=== PATIENT | male | born 1965 | race Caucasian/White ===

== ENCOUNTER 2021-07-14 10:28 | Observation (INO) ==
[2021-07-14 12:07] LABS: Basophils # 0.1 K/mcL (0.0-0.2); Basophils % 0.7 %; Eosinophils # 0.3 K/mcL (0.0-0.6); Eosinophils % 3.8 %; Hematocrit 30.4 % (37.5-50.1); Hemoglobin 10.1 g/dL (12.9-16.9); Immature Granulocytes % 0.3 % (0-4); Lymphocytes # 1.5 K/mcL (0.6-4.6); Lymphocytes % 17.6 %; Mean Corpuscular HGB Conc 33.2 g/dL (31.6-35.5); Mean Corpuscular Hemoglobin 29.5 pg (28.0-33.3); Mean Corpuscular Volume 88.9 fL (83.0-100.0); Mean Platelet Volume 10.3 fL (9.4-12.4); Monocytes # 0.5 K/mcL (0.0-1.3); Monocytes % 6.1 %; Neutrophils # 6.1 K/mcL (1.6-8.9); Platelet Count 258 K/mcL (140-400); Red Blood Count 3.42 M/mcL (4.19-5.50); Red Cell Distribution Width 12.8 % (11.5-14.5); Segmented Neutrophils % 71.5 %; White Blood Count 8.6 K/mcL (4.3-11.1)
[2021-07-14 12:13] LABS: BUN/Creatinine Ratio 15 (6-26); Blood Urea Nitrogen 29 mg/dL (6-20); Calcium 8.2 mg/dL (8.6-10.3); Carbon Dioxide 25 mEq/L (23-29); Chloride 108 mEq/L (98-107); Glucose 270 mg/dL (70-105); Osmolality,Calculated 299 (280-300); Potassium 4.6 mEq/L (3.5-5.1); Sodium 137 mEq/L (136-145); Troponin I < 0.03 ng/mL (< 0.04); eGFR For African Americans 45 (> 60); eGFR For Non-African Americans 37 (> 60)
[2021-07-14] MEDS ORDERED: Furosemide 40 MG/4 ML VIAL IVP ONE (12:20)
[2021-07-14] MEDS ORDERED: *HR* Labetalol 20 MG/4 ML SYRINGE IVP ONE ×2 (12:20→13:36)
[2021-07-14 13:47] LABS: Activated Partial Thrombo Time 29.6 Seconds (26.0-36.0)
[2021-07-14 14:13] LABS: Alanine Aminotransferase 18 Units/L (7-52); Albumin 2.5 g/dL (3.5-5.7); Albumin/Globulin Ratio 1.1 (1.1-2.2); Alkaline Phosphatase 97 Units/L (34-104); Aspartate Amino Transferase 22 Units/L (13-39); Bilirubin,Direct 0.1 mg/dL (0.0-0.2); Bilirubin,Indirect 0.3 mg/dL (0.0-1.0); Bilirubin,Total 0.4 mg/dL (0.3-1.0); Globulin 2.3 g/dL (2.4-3.5); Total Protein 4.8 g/dL (6.4-8.9)
[2021-07-14] MEDS ORDERED: niCARdipine 20 MG/200 ML MLS IVC SCH ×2 (16:30→16:45)
[2021-07-14] MEDS ORDERED: NIFEdipine XL (24 HR) 30 MG TAB.ER.24 PO SCH (16:30)
[2021-07-14] MEDS ORDERED: Dextrose Gel 15 GM/37.5 ML TUBE PO PRN ×2 (16:31)
[2021-07-14] MEDS ORDERED: D5% in Water 1,000 ML IVC PRN (16:31)
[2021-07-14] MEDS ORDERED: *HR* Dextrose 50 % in Water (Vial) 50 ML VIAL IVP PRN (16:31)
[2021-07-14] MEDS ORDERED: Acetaminophen 325 MG TABLET PO PRN (16:32)
[2021-07-14] MEDS ORDERED: Ondansetron 4 MG/2 ML VIAL IVP PRN (16:32)
[2021-07-14] MEDS ORDERED: hydrALAZINE 10 MG TABLET PO SCH (16:50)
[2021-07-14] MEDS ORDERED: Perflutren Lipid Microsphere 1.3 ML in 0.9 % Sodium Chloride 8.7 ML IVP PRN (16:58)
[2021-07-14] MEDS ORDERED: Insulin DETEMIR 100 UNIT/ML X5UNITS SUBQ SCH (21:00)
[2021-07-14] MEDS: *HR* Heparin 5,000 UNIT/ML VIAL SQ SCH (23:35)
[2021-07-14] MEDS: Insulin LISPRO 300 UNITS/3 ML VIAL SUBQ SCH (23:35)
[2021-07-15 02:35] LABS: Hematocrit 26.7 % (37.5-50.1); Hemoglobin 9.1 g/dL (12.9-16.9); Mean Corpuscular HGB Conc 34.1 g/dL (31.6-35.5); Mean Corpuscular Hemoglobin 29.7 pg (28.0-33.3); Mean Corpuscular Volume 87.3 fL (83.0-100.0); Mean Platelet Volume 10.5 fL (9.4-12.4); Platelet Count 241 K/mcL (140-400); Red Blood Count 3.06 M/mcL (4.19-5.50); Red Cell Distribution Width 12.9 % (11.5-14.5); White Blood Count 7.3 K/mcL (4.3-11.1)
[2021-07-15 02:46] LABS: Potassium 4.4 mEq/L (3.5-5.1)
[2021-07-15] MEDS: *HR* Heparin 5,000 UNIT/ML VIAL SQ SCH ×3 (05:43→22:41)
[2021-07-15] MEDS: Insulin LISPRO 300 UNITS/3 ML VIAL SUBQ SCH ×5 (09:42→22:38)
[2021-07-15] MEDS: NIFEdipine XL (24 HR) 30 MG TAB.ER.24 PO SCH (16:03)
[2021-07-16 02:36] LABS: Basophils % 0.3 %; Eosinophils # 0.2 K/mcL (0.0-0.6); Eosinophils % 2.6 %; Hematocrit 25.3 % (37.5-50.1); Hemoglobin 8.5 g/dL (12.9-16.9); Immature Granulocytes % 0.3 % (0-4); Lymphocytes # 1.4 K/mcL (0.6-4.6); Lymphocytes % 20.8 %; Mean Corpuscular HGB Conc 33.6 g/dL (31.6-35.5); Mean Corpuscular Hemoglobin 29.9 pg (28.0-33.3); Mean Corpuscular Volume 89.1 fL (83.0-100.0); Mean Platelet Volume 10.5 fL (9.4-12.4); Monocytes # 0.5 K/mcL (0.0-1.3); Monocytes % 6.8 %; Neutrophils # 4.6 K/mcL (1.6-8.9); Platelet Count 231 K/mcL (140-400); Red Blood Count 2.84 M/mcL (4.19-5.50); Red Cell Distribution Width 12.8 % (11.5-14.5); Segmented Neutrophils % 69.2 %; White Blood Count 6.6 K/mcL (4.3-11.1)
[2021-07-16 02:57] LABS: Calcium 7.9 mg/dL (8.6-10.3); Potassium 4.8 mEq/L (3.5-5.1)
[2021-07-16 02:58] LABS: Uric Acid 7.4 mg/dL (2.3-7.6)
[2021-07-16] MEDS: *HR* Heparin 5,000 UNIT/ML VIAL SQ SCH ×3 (06:30→23:07)
[2021-07-16] MEDS: Insulin LISPRO 300 UNITS/3 ML VIAL SUBQ SCH ×4 (07:33→21:36)
[2021-07-16] MEDS: NIFEdipine XL (24 HR) 30 MG TAB.ER.24 PO SCH (09:07)
[2021-07-16] MEDS: Sucralfate 1 GM TABLET PO SCH ×3 (13:05→23:07)
[2021-07-16] MEDS: hydrALAZINE 25 MG TABLET PO SCH ×2 (13:05→19:39)
[2021-07-16] MEDS ORDERED: Mirtazapine 15 MG TABLET PO SCH (21:00)
[2021-07-17 02:18] LABS: Basophils % 0.5 %; Eosinophils # 0.2 K/mcL (0.0-0.6); Eosinophils % 2.5 %; Hematocrit 24.1 % (37.5-50.1); Immature Granulocytes % 0.2 % (0-4); Lymphocytes # 1.4 K/mcL (0.6-4.6); Lymphocytes % 22.5 %; Mean Corpuscular HGB Conc 33.2 g/dL (31.6-35.5); Mean Corpuscular Hemoglobin 30.1 pg (28.0-33.3); Mean Corpuscular Volume 90.6 fL (83.0-100.0); Mean Platelet Volume 10.5 fL (9.4-12.4); Monocytes # 0.5 K/mcL (0.0-1.3); Monocytes % 7.1 %; Neutrophils # 4.3 K/mcL (1.6-8.9); Platelet Count 217 K/mcL (140-400); Red Blood Count 2.66 M/mcL (4.19-5.50); Red Cell Distribution Width 12.6 % (11.5-14.5); Segmented Neutrophils % 67.2 %; White Blood Count 6.4 K/mcL (4.3-11.1)
[2021-07-17 02:41] LABS: Calcium 7.5 mg/dL (8.6-10.3); Potassium 4.3 mEq/L (3.5-5.1)
[2021-07-17] MEDS: hydrALAZINE 25 MG TABLET PO SCH (05:59)
[2021-07-17] MEDS: *HR* Heparin 5,000 UNIT/ML VIAL SQ SCH (05:59)
[2021-07-17] MEDS: Insulin LISPRO 300 UNITS/3 ML VIAL SUBQ SCH ×2 (07:21→12:31)
[2021-07-17] MEDS: NIFEdipine XL (24 HR) 30 MG TAB.ER.24 PO SCH (08:20)
[2021-07-17] MEDS: Sucralfate 1 GM TABLET PO SCH ×2 (08:20→12:31)
[2021-07-17] MEDS ORDERED: Folic Acid 1 MG TABLET PO SCH (09:00)
[2021-07-17 11:46] VITALS: BP 113/68; PULSE 93; TEMP 98.4; O2SAT 90
== END 2021-07-17 14:20 | disposition left against medical advice (07) ==
LOC: 3ANU 10:28 → EMEROOARM 10:28 → SUATTDRO 21:49 → 3ANU 23:00
PROVIDERS: ADMIT Student in an Organized Health Care Education/Training Program; ATTEND Internal Medicine

== ENCOUNTER 2021-08-29 07:07 | Inpatient (IN) ==
[2021-08-29] MEDS ORDERED: *HR* Dextrose 50 % in Water (Syg) 50 ML SYRINGE ONE (07:17)
[2021-08-29] MEDS ORDERED: 0.9 % Sodium Chloride 1,000 ML IVC ONE ×2 (07:19→08:12)
[2021-08-29 07:36] LABS: Eosinophils # 0.1 K/mcL (0.0-0.6); Eosinophils % 0.8 %; Hematocrit 19.2 % (37.5-50.1); Hemoglobin 6.5 g/dL (12.9-16.9); Immature Granulocytes % 0.3 % (0-4); Lymphocytes # 0.6 K/mcL (0.6-4.6); Lymphocytes % 6.1 %; Mean Corpuscular HGB Conc 33.9 g/dL (31.6-35.5); Mean Corpuscular Hemoglobin 28.5 pg (28.0-33.3); Mean Corpuscular Volume 84.2 fL (83.0-100.0); Mean Platelet Volume 9.5 fL (9.4-12.4); Monocytes # 0.4 K/mcL (0.0-1.3); Monocytes % 3.9 %; Neutrophils # 9.1 K/mcL (1.6-8.9); Platelet Count 426 K/mcL (140-400); Red Blood Count 2.28 M/mcL (4.19-5.50); Segmented Neutrophils % 88.9 %; White Blood Count 10.2 K/mcL (4.3-11.1)
[2021-08-29] MEDS ORDERED: *HR* Dextrose 50 % in Water (Syg) 50 ML SYRINGE IVP ONE (07:37)
[2021-08-29 08:09] LABS: Alanine Aminotransferase 13 Units/L (7-52); Albumin 1.8 g/dL (3.5-5.7); Albumin/Globulin Ratio 0.6 (1.1-2.2); Alkaline Phosphatase 178 Units/L (34-104); Aspartate Amino Transferase 15 Units/L (13-39); BUN/Creatinine Ratio 13 (6-26); Bilirubin,Total 0.2 mg/dL (0.3-1.0); Blood Urea Nitrogen 45 mg/dL (6-20); Calcium 8.4 mg/dL (8.6-10.3); Carbon Dioxide 27 mEq/L (23-29); Chloride 95 mEq/L (98-107); Globulin 3.1 g/dL (2.4-3.5); Glucose 68 mg/dL (70-105); Lipase 7 Units/L (11-82); Osmolality,Calculated 280 (280-300); Sodium 130 mEq/L (136-145); Total Protein 4.9 g/dL (6.4-8.9); Troponin I 0.06 ng/mL (< 0.04); eGFR For African Americans 22 (> 60); eGFR For Non-African Americans 18 (> 60)
[2021-08-29 08:13] LABS: Ethanol < 10 mg/dL (Less than 10)
[2021-08-29] MEDS ORDERED: Naloxone 0.4 MG/ML INJ IVP PRN (08:19)
[2021-08-29] MEDS ORDERED: Melatonin 3 MG TABLET PO PRN (08:19)
[2021-08-29] MEDS ORDERED: Ondansetron ODT 4 MG TAB.RAPDIS SL PRN (08:19)
[2021-08-29] MEDS ORDERED: Mag Hydrox/Al Hydrox/Simeth 30 ML UDC PO PRN (08:19)
[2021-08-29] MEDS ORDERED: Dextrose Gel 15 GM/37.5 ML TUBE PO PRN ×2 (08:22)
[2021-08-29] MEDS ORDERED: 0.9 % Sodium Chloride 250 ML ONE (10:42)
[2021-08-29] MEDS: 0.9 % Sodium Chloride 1,000 ML IVC SCH (11:00)
[2021-08-29 11:30] LABS: Influenza A PCR Negative (Negative); Influenza B PCR Negative (Negative); Resp. Syncytial Virus PCR Negative (Negative)
[2021-08-29 11:43] LABS: SARS-CoV-2 by PCR (In House) Negative (Negative)
[2021-08-29] MEDS: Insulin LISPRO 300 UNITS/3 ML VIAL SUBQ SCH ×2 (12:23→15:59)
[2021-08-29] MEDS ORDERED: Potassium Chloride 40 MEQ, Lidocaine 1% 2 ML in 0.9 % Sodium Chloride 500 ML IVPB ONE (13:25)
[2021-08-29] MEDS: *HR* Dextrose 50 % in Water (Syg) 50 ML SYRINGE IVP PRN ×2 (15:48→21:34)
[2021-08-29 16:42] LABS: Hematocrit 21.2 % (37.5-50.1); Hemoglobin 7.3 g/dL (12.9-16.9)
[2021-08-29] MEDS: Pantoprazole 40 MG VIAL IVP SCH (18:03)
[2021-08-29 20:46] LABS: Hematocrit 21.9 % (37.5-50.1); Hemoglobin 7.5 g/dL (12.9-16.9)
[2021-08-29] MEDS ORDERED: Insulin LISPRO 300 UNITS/3 ML VIAL SUBQ SCH (21:00)
[2021-08-29] MEDS: D5% in Water 1,000 ML IVC PRN (21:33)
[2021-08-30 01:54] LABS: Hematocrit 21.7 % (37.5-50.1); Hemoglobin 7.3 g/dL (12.9-16.9); Mean Corpuscular HGB Conc 33.6 g/dL (31.6-35.5); Mean Corpuscular Hemoglobin 28.7 pg (28.0-33.3); Mean Corpuscular Volume 85.4 fL (83.0-100.0); Mean Platelet Volume 9.7 fL (9.4-12.4); Platelet Count 451 K/mcL (140-400); Red Blood Count 2.54 M/mcL (4.19-5.50); Red Cell Distribution Width 13.1 % (11.5-14.5); White Blood Count 9.9 K/mcL (4.3-11.1)
[2021-08-30 02:11] LABS: Calcium 7.5 mg/dL (8.6-10.3); Potassium 3.2 mEq/L (3.5-5.1)
[2021-08-30] MEDS: Pantoprazole 40 MG VIAL IVP SCH (05:11)
[2021-08-30 06:35] LABS: Bacteria,Urine Moderate per hpf (None-Few); Bilirubin,Urine Negative (Negative); Blood,Urine Small (Negative); Clarity,Urine Turbid (Clear); Color,Urine Light-Yellow (Yellow); Glucose,Urine (UA) 300 mg/dL (Normal); Ketones,Urine Negative (Negative); Leukocyte Esterase,Urine Large (Negative); Nitrite,Urine Negative (Negative); Protein,Urine 100 mg/dL (Neg-Trace); RBC,Urine 0-3 per hpf (0-3); Urobilinogen,Urine Normal (Normal); WBC,Urine TNTC per hpf (0-3)
[2021-08-30] MEDS: D5% in Water 1,000 ML IVC PRN (07:23)
[2021-08-30] MEDS: Insulin LISPRO 300 UNITS/3 ML VIAL SUBQ SCH ×2 (08:40→11:15)
[2021-08-30] MEDS ORDERED: NIFEdipine XL (24 HR) 30 MG TAB.ER.24 PO SCH (09:00)
[2021-08-30] MEDS: Multivit/Ca/Min/Fe/FA 1 TAB TABLET PO SCH (09:02)
[2021-08-30] MEDS: NIFEdipine XL (24 HR) 30 MG TAB.ER.24 PO SCH (09:02)
[2021-08-30] MEDS: Calcium Gluconate 1gm/50mL 1 GM/50 ML BAG IVPB SCH ×2 (09:03→09:49)
[2021-08-30] MEDS: cefTRIAXone 1,000 MG in 0.9 % Sodium Chloride Mini Bag 100 ML IVPB SCH (09:03)
[2021-08-30] MEDS ORDERED: Acetaminophen 325 MG TABLET PO PRN (13:50)
[2021-08-30] MEDS ORDERED: *HR* OxyCODONE Immed Rel 5 MG TABLET PO PRN (13:50)
[2021-08-30 14:39] LABS: Estimated Average Glucose 154 mg/dl
[2021-08-30] MEDS: Sucralfate 1 GM TABLET PO SCH ×2 (16:55→20:44)
[2021-08-30] MEDS ORDERED: Calcium Acetate 667 MG CAPSULE PO SCH (17:00)
[2021-08-31] MEDS: 0.9 % Sodium Chloride 1,000 ML IVC SCH ×3 (01:42→15:14)
[2021-08-31 07:31] LABS: Hematocrit 25.3 % (37.5-50.1); Hemoglobin 8.4 g/dL (12.9-16.9); Mean Corpuscular HGB Conc 33.2 g/dL (31.6-35.5); Mean Corpuscular Hemoglobin 28.4 pg (28.0-33.3); Mean Corpuscular Volume 85.5 fL (83.0-100.0); Mean Platelet Volume 9.4 fL (9.4-12.4); Platelet Count 434 K/mcL (140-400); Red Blood Count 2.96 M/mcL (4.19-5.50); Red Cell Distribution Width 13.2 % (11.5-14.5)
[2021-08-31 07:59] LABS: Calcium 7.7 mg/dL (8.6-10.3); Magnesium 2.2 mg/dL (1.6-2.6); Potassium 3.3 mEq/L (3.5-5.1)
[2021-08-31] MEDS: cefTRIAXone 1,000 MG in 0.9 % Sodium Chloride Mini Bag 100 ML IVPB SCH (08:12)
[2021-08-31] MEDS: Multivit/Ca/Min/Fe/FA 1 TAB TABLET PO SCH (08:12)
[2021-08-31] MEDS: Sucralfate 1 GM TABLET PO SCH ×4 (08:12→21:29)
[2021-08-31] MEDS: NIFEdipine XL (24 HR) 30 MG TAB.ER.24 PO SCH (08:12)
[2021-08-31 08:17] LABS: Folate 12.1 ng/mL (3.0-16.0)
[2021-08-31] MEDS: Finasteride 5 MG TABLET PO SCH (08:17)
[2021-08-31] MEDS ORDERED: Calcium Gluconate 1gm/50mL 1 GM/50 ML BAG IVPB ONE (08:36)
[2021-08-31] MEDS ORDERED: Iron Sucrose Complex 400 MG in 0.9 % Sodium Chloride 250 ML IVPB ONE (08:36)
[2021-08-31 09:43] LABS: Thyroid Stimulating Hormone 2.873 mcIU/mL (0.340-5.600)
[2021-09-01 00:41] LABS: Hematocrit 25.9 % (37.5-50.1); Hemoglobin 8.7 g/dL (12.9-16.9); Mean Corpuscular HGB Conc 33.6 g/dL (31.6-35.5); Mean Corpuscular Volume 86.3 fL (83.0-100.0); Mean Platelet Volume 9.3 fL (9.4-12.4); Platelet Count 437 K/mcL (140-400); Red Cell Distribution Width 13.2 % (11.5-14.5); White Blood Count 10.9 K/mcL (4.3-11.1)
[2021-09-01 01:00] LABS: Calcium 7.5 mg/dL (8.6-10.3); Magnesium 2.1 mg/dL (1.6-2.6); Phosphorous 3.6 mg/dL (2.7-4.5); Potassium 3.6 mEq/L (3.5-5.1)
[2021-09-01] MEDS: NIFEdipine XL (24 HR) 30 MG TAB.ER.24 PO SCH (08:35)
[2021-09-01] MEDS: Sucralfate 1 GM TABLET PO SCH ×4 (08:36→19:49)
[2021-09-01] MEDS: Multivit/Ca/Min/Fe/FA 1 TAB TABLET PO SCH (08:36)
[2021-09-01] MEDS: cefTRIAXone 1,000 MG in 0.9 % Sodium Chloride Mini Bag 100 ML IVPB SCH (08:36)
[2021-09-01] MEDS: Finasteride 5 MG TABLET PO SCH (08:38)
[2021-09-01] MEDS ORDERED: 0.9 % Sodium Chloride 1,000 ML IVC SCH (12:15)
[2021-09-01] MEDS: Lactobacillus 1 EACH CAP.SPRINK PO SCH (19:49)
[2021-09-01] MEDS ORDERED: Cefepime HCl 1,000 MG in 0.9 % Sodium Chloride Mini Bag 100 ML IVPB SCH (21:00)
[2021-09-02 03:23] LABS: Hematocrit 23.3 % (37.5-50.1); Hemoglobin 7.7 g/dL (12.9-16.9); Mean Corpuscular Hemoglobin 28.5 pg (28.0-33.3); Mean Corpuscular Volume 86.3 fL (83.0-100.0); Mean Platelet Volume 9.4 fL (9.4-12.4); Platelet Count 471 K/mcL (140-400); Red Cell Distribution Width 13.6 % (11.5-14.5)
[2021-09-02 04:07] LABS: Calcium 7.1 mg/dL (8.6-10.3); Magnesium 2.1 mg/dL (1.6-2.6); Potassium 3.2 mEq/L (3.5-5.1)
[2021-09-02] MEDS: NIFEdipine XL (24 HR) 30 MG TAB.ER.24 PO SCH (07:49)
[2021-09-02] MEDS: Lactobacillus 1 EACH CAP.SPRINK PO SCH (07:49)
[2021-09-02] MEDS: Sucralfate 1 GM TABLET PO SCH (07:49)
[2021-09-02] MEDS: Finasteride 5 MG TABLET PO SCH (07:49)
[2021-09-02] MEDS: Multivit/Ca/Min/Fe/FA 1 TAB TABLET PO SCH (07:49)
[2021-09-02] MEDS ORDERED: levoFLOXacin 750 MG TABLET PO SCH (09:00)
[2021-09-02 10:35] VITALS: BP 171/85; PULSE 78; TEMP 99.1; O2SAT 98
[2021-09-02] MEDS ORDERED: Sucralfate 1 GM TABLET PO SCH (11:30)
== END 2021-09-02 15:22 | disposition home health service (06) | DRG 682 ==
LOC: SUATTDRO → EMEROOARM 07:07 → 2ANU 07:07 → OBSVTOIN 12:48 → SUATTDRO 12:48 → 2ANU 14:02
PROVIDERS: ADMIT Family Medicine; ATTEND Internal Medicine

== ENCOUNTER 2021-11-26 14:36 | Inpatient (IN) ==
[2021-11-26] MEDS ORDERED: 0.9 % Sodium Chloride 500 ML IVC ONE (14:54)
[2021-11-26 15:23] LABS: Hematocrit 21.6 % (37.5-50.1); Hemoglobin 6.7 g/dL (12.9-16.9); Mean Corpuscular Hemoglobin 27.7 pg (28.0-33.3); Mean Corpuscular Volume 89.3 fL (83.0-100.0); Mean Platelet Volume 9.3 fL (9.4-12.4); Platelet Count 396 K/mcL (140-400); Red Blood Count 2.42 M/mcL (4.19-5.50); Red Cell Distribution Width 14.4 % (11.5-14.5); White Blood Count 21.9 K/mcL (4.3-11.1)
[2021-11-26 15:50] LABS: Alanine Aminotransferase 14 Units/L (7-52); Albumin < 1.5 g/dL (3.5-5.7); Alkaline Phosphatase 427 Units/L (34-104); Aspartate Amino Transferase 22 Units/L (13-39); BUN/Creatinine Ratio 18 (6-26); Bilirubin,Direct 0.1 mg/dL (0.0-0.2); Bilirubin,Indirect 0.3 mg/dL (0.0-1.0); Bilirubin,Total 0.4 mg/dL (0.3-1.0); Blood Urea Nitrogen 52 mg/dL (6-20); Calcium 7.4 mg/dL (8.6-10.3); Carbon Dioxide 14 mEq/L (23-29); Chloride 107 mEq/L (98-107); Glucose 156 mg/dL (70-105); Lipase 49 Units/L (11-82); Osmolality,Calculated 293 (280-300); Potassium 5.1 mEq/L (3.5-5.1); Sodium 133 mEq/L (136-145); Total Protein 5.9 g/dL (6.4-8.9); Troponin I 0.06 ng/mL (< 0.04); eGFR For African Americans 28 (> 60); eGFR For Non-African Americans 23 (> 60)
[2021-11-26] MEDS ORDERED: Piperacillin/Tazobactam 3.375 GM in 0.9 % Sodium Chloride Mini Bag 100 ML IVPB ONE (15:54)
[2021-11-26] MEDS ORDERED: 0.9 % Sodium Chloride 1,000 ML IVC ONE (15:54)
[2021-11-26 18:32] LABS: Bacteria,Urine Few per hpf (None-Few); Bilirubin,Urine Negative (Negative); Blood,Urine Large (Negative); Clarity,Urine Turbid (Clear); Color,Urine Yellow (Yellow); Glucose,Urine (UA) Normal (Normal); Ketones,Urine Negative (Negative); Leukocyte Esterase,Urine Large (Negative); Mucus,Urine Few per lpf (None-Few); Nitrite,Urine Negative (Negative); Protein,Urine 100 mg/dL (Neg-Trace); Specific Gravity,Urine 1.015 (1.010-1.025); Urobilinogen,Urine Normal (Normal); WBC,Urine 30-50 per hpf (0-3)
[2021-11-26 21:30] LABS: Influenza A PCR Negative (Negative); Influenza B PCR Negative (Negative); Resp. Syncytial Virus PCR Negative (Negative)
[2021-11-26 21:46] LABS: SARS-CoV-2 by PCR (In House) Positive (Negative)
[2021-11-26] MEDS ORDERED: Dextrose Gel 15 GM/37.5 ML TUBE PO PRN ×2 (23:10)
[2021-11-26] MEDS ORDERED: *HR* Dextrose 50 % in Water (Syg) 50 ML SYRINGE IVP PRN (23:10)
[2021-11-26] MEDS ORDERED: D5% in Water 1,000 ML IVC PRN (23:10)
[2021-11-26] MEDS ORDERED: Melatonin 3 MG TABLET PO PRN (23:12)
[2021-11-26] MEDS ORDERED: Naloxone 0.4 MG/ML INJ IVP PRN (23:12)
[2021-11-26] MEDS ORDERED: 0.9 % Sodium Chloride 1,000 ML IVC SCH (23:30)
[2021-11-27] MEDS ORDERED: 0.9 % Sodium Chloride 1,000 ML IVC SCH (01:15)
[2021-11-27 01:56] LABS: Basophils % 0.1 %; Hematocrit 25.9 % (37.5-50.1); Immature Granulocytes % 1.2 % (0-4); Lymphocytes # 0.9 K/mcL (0.6-4.6); Lymphocytes % 5.1 %; Mean Corpuscular Hemoglobin 28.5 pg (28.0-33.3); Mean Platelet Volume 9.2 fL (9.4-12.4); Monocytes # 0.3 K/mcL (0.0-1.3); Monocytes % 1.5 %; Platelet Count 365 K/mcL (140-400); Red Blood Count 2.91 M/mcL (4.19-5.50); Red Cell Distribution Width 14.3 % (11.5-14.5); Segmented Neutrophils % 92.1 %; White Blood Count 18.4 K/mcL (4.3-11.1)
[2021-11-27 02:09] LABS: Hemoglobin 8.3 g/dL (12.9-16.9)
[2021-11-27 02:36] LABS: Platelet Estimate Normal (Normal)
[2021-11-27] MEDS ORDERED: Albumin 25% 25gram/100mL 25 GM/100 ML IV.SOLN IVPB ONE (05:14)
[2021-11-27 05:40] LABS: Troponin I 0.06 ng/mL (< 0.04)
[2021-11-27] MEDS ORDERED: cefTRIAXone 2,000 MG in 0.9 % Sodium Chloride Mini Bag 100 ML IVPB SCH (09:00)
[2021-11-27] MEDS ORDERED: cefTRIAXone 1,000 MG in 0.9 % Sodium Chloride Mini Bag 100 ML IVPB SCH (09:00)
[2021-11-27] MEDS: cefTRIAXone 2,000 MG in 0.9 % Sodium Chloride Mini Bag 100 ML IVPB SCH (09:57)
[2021-11-27] MEDS: Thiamine (B-1) 100 MG TABLET PO SCH (09:58)
[2021-11-27] MEDS: NIFEdipine XL (24 HR) 60 MG TAB.ER.24 PO SCH (09:58)
[2021-11-27] MEDS: Lactobacillus 1 EACH CAP.SPRINK PO SCH ×2 (09:58→21:09)
[2021-11-27] MEDS: Finasteride 5 MG TABLET PO SCH (09:59)
[2021-11-27] MEDS: Multivit/Ca/Min/Fe/FA 1 TAB TABLET PO SCH (09:59)
[2021-11-27] MEDS: hydrALAZINE 25 MG TABLET PO SCH ×3 (09:59→21:06)
[2021-11-27] MEDS: Sucralfate 1 GM TABLET PO SCH ×4 (09:59→21:08)
[2021-11-27] MEDS: Folic Acid 1 MG TABLET PO SCH (09:59)
[2021-11-27] MEDS: Calcium Acetate 667 MG CAPSULE PO SCH ×3 (10:17→17:14)
[2021-11-27] MEDS: Insulin LISPRO 300 UNITS/3 ML VIAL SUBQ SCH ×4 (10:21→21:01)
[2021-11-27] MEDS: Pantoprazole 40 MG VIAL IVP SCH (17:25)
[2021-11-28] MEDS: Pantoprazole 40 MG VIAL IVP SCH ×2 (05:42→17:37)
[2021-11-28] MEDS: Lactobacillus 1 EACH CAP.SPRINK PO SCH ×2 (09:18→22:17)
[2021-11-28] MEDS: Sucralfate 1 GM TABLET PO SCH ×4 (09:18→22:17)
[2021-11-28] MEDS: Multivit/Ca/Min/Fe/FA 1 TAB TABLET PO SCH (09:18)
[2021-11-28] MEDS: Thiamine (B-1) 100 MG TABLET PO SCH (09:18)
[2021-11-28] MEDS: Calcium Acetate 667 MG CAPSULE PO SCH ×3 (09:19→16:24)
[2021-11-28] MEDS: Finasteride 5 MG TABLET PO SCH (09:19)
[2021-11-28] MEDS: Folic Acid 1 MG TABLET PO SCH (09:19)
[2021-11-28] MEDS: cefTRIAXone 2,000 MG in 0.9 % Sodium Chloride Mini Bag 100 ML IVPB SCH (09:20)
[2021-11-28] MEDS: NIFEdipine XL (24 HR) 60 MG TAB.ER.24 PO SCH (09:21)
[2021-11-28] MEDS: Insulin LISPRO 300 UNITS/3 ML VIAL SUBQ SCH ×4 (09:22→22:18)
[2021-11-28] MEDS: hydrALAZINE 25 MG TABLET PO SCH ×3 (09:22→22:18)
[2021-11-28 10:10] LABS: Basophils % 0.1 %; Hematocrit 20.5 % (37.5-50.1); Immature Granulocytes % 0.7 % (0-4); Lymphocytes # 0.7 K/mcL (0.6-4.6); Lymphocytes % 4.4 %; Mean Corpuscular HGB Conc 31.7 g/dL (31.6-35.5); Mean Corpuscular Hemoglobin 28.3 pg (28.0-33.3); Mean Corpuscular Volume 89.1 fL (83.0-100.0); Mean Platelet Volume 9.6 fL (9.4-12.4); Monocytes # 0.1 K/mcL (0.0-1.3); Monocytes % 0.7 %; Neutrophils # 14.5 K/mcL (1.6-8.9); Platelet Count 258 K/mcL (140-400); Red Cell Distribution Width 14.7 % (11.5-14.5); Segmented Neutrophils % 94.1 %; White Blood Count 15.3 K/mcL (4.3-11.1)
[2021-11-28 10:11] LABS: Hemoglobin 6.5 g/dL (12.9-16.9)
[2021-11-28] MEDS ORDERED: 0.9 % Sodium Chloride 1,000 ML IV ONE (16:29)
[2021-11-28] MEDS ORDERED: 0.9 % Sodium Chloride 500 ML ONE (17:55)
[2021-11-28 18:08] LABS: Calcium 7.2 mg/dL (8.6-10.3); Potassium 5.1 mEq/L (3.5-5.1)
[2021-11-29] MEDS: Pantoprazole 40 MG VIAL IVP SCH ×2 (06:25→16:53)
[2021-11-29] MEDS: Insulin LISPRO 300 UNITS/3 ML VIAL SUBQ SCH ×4 (08:31→21:50)
[2021-11-29] MEDS: Multivit/Ca/Min/Fe/FA 1 TAB TABLET PO SCH (08:32)
[2021-11-29] MEDS: Finasteride 5 MG TABLET PO SCH (08:32)
[2021-11-29] MEDS: Folic Acid 1 MG TABLET PO SCH (08:32)
[2021-11-29] MEDS: Calcium Acetate 667 MG CAPSULE PO SCH ×3 (08:32→16:53)
[2021-11-29] MEDS: NIFEdipine XL (24 HR) 60 MG TAB.ER.24 PO SCH ×2 (08:32→08:49)
[2021-11-29] MEDS: Sucralfate 1 GM TABLET PO SCH ×4 (08:32→21:50)
[2021-11-29] MEDS: Lactobacillus 1 EACH CAP.SPRINK PO SCH ×2 (08:32→21:50)
[2021-11-29] MEDS: Thiamine (B-1) 100 MG TABLET PO SCH (08:32)
[2021-11-29] MEDS: cefTRIAXone 2,000 MG in 0.9 % Sodium Chloride Mini Bag 100 ML IVPB SCH (08:33)
[2021-11-29] MEDS: hydrALAZINE 25 MG TABLET PO SCH ×2 (08:34→15:11)
[2021-11-29 08:55] LABS: Basophils % 0.1 %; Eosinophils % 0.1 %; Hematocrit 28.9 % (37.5-50.1); Immature Granulocytes % 0.8 % (0-4); Lymphocytes # 0.8 K/mcL (0.6-4.6); Lymphocytes % 6.9 %; Mean Corpuscular HGB Conc 31.5 g/dL (31.6-35.5); Mean Corpuscular Hemoglobin 27.8 pg (28.0-33.3); Mean Corpuscular Volume 88.4 fL (83.0-100.0); Mean Platelet Volume 9.5 fL (9.4-12.4); Monocytes # 0.1 K/mcL (0.0-1.3); Platelet Count 233 K/mcL (140-400); Red Blood Count 3.27 M/mcL (4.19-5.50); Segmented Neutrophils % 91.1 %; White Blood Count 12.1 K/mcL (4.3-11.1)
[2021-11-29 08:56] LABS: Hemoglobin 9.1 g/dL (12.9-16.9)
[2021-11-29 09:14] LABS: Iron 25 mcg/dL (65-175); Transferrin < 75 mg/dL (203-362)
[2021-11-29 09:17] LABS: Calcium 7.3 mg/dL (8.6-10.3)
[2021-11-29] MEDS ORDERED: Iron Sucrose Complex 400 MG in 0.9 % Sodium Chloride 250 ML IVPB ONE (11:47)
[2021-11-29] MEDS ORDERED: Sodium Bicarbonate 150 MEQ in D5% in Water 1,000 ML IVC SCH (12:00)
[2021-11-29] MEDS: Albumin 25% 25gram/100mL 25 GM/100 ML IV.SOLN IVPB SCH (16:53)
[2021-11-30] MEDS: Albumin 25% 25gram/100mL 25 GM/100 ML IV.SOLN IVPB SCH ×3 (02:30→16:55)
[2021-11-30] MEDS: Pantoprazole 40 MG VIAL IVP SCH ×2 (05:31→16:56)
[2021-11-30 06:01] LABS: Hematocrit 26.7 % (37.5-50.1); Hemoglobin 8.6 g/dL (12.9-16.9); Mean Corpuscular HGB Conc 32.2 g/dL (31.6-35.5); Mean Corpuscular Hemoglobin 28.3 pg (28.0-33.3); Mean Corpuscular Volume 87.8 fL (83.0-100.0); Mean Platelet Volume 9.5 fL (9.4-12.4); Platelet Count 191 K/mcL (140-400); Red Blood Count 3.04 M/mcL (4.19-5.50); White Blood Count 9.5 K/mcL (4.3-11.1)
[2021-11-30 06:49] LABS: BUN/Creatinine Ratio 18 (6-26); Blood Urea Nitrogen 55 mg/dL (6-20); Calcium 7.6 mg/dL (8.6-10.3); Carbon Dioxide 19 mEq/L (23-29); Chloride 107 mEq/L (98-107); Ferritin > 1500 ng/mL (20-250); Glucose 209 mg/dL (70-105); Lactate Dehydrogenase 222 Units/L (140-271); Osmolality,Calculated 301 (280-300); Sodium 135 mEq/L (136-145); eGFR For African Americans 26 (> 60); eGFR For Non-African Americans 22 (> 60)
[2021-11-30 08:05] LABS: C-Reactive Protein 130 mg/L (Less than 10)
[2021-11-30] MEDS: cefTRIAXone 2,000 MG in 0.9 % Sodium Chloride Mini Bag 100 ML IVPB SCH (08:07)
[2021-11-30] MEDS: Cholecalciferol (D-3) 1,000 UNIT (25MCG) TABLET PO SCH (08:08)
[2021-11-30] MEDS: Lactobacillus 1 EACH CAP.SPRINK PO SCH ×2 (08:09→21:23)
[2021-11-30] MEDS: Finasteride 5 MG TABLET PO SCH (08:09)
[2021-11-30] MEDS: Thiamine (B-1) 100 MG TABLET PO SCH (08:09)
[2021-11-30] MEDS: Folic Acid 1 MG TABLET PO SCH (08:09)
[2021-11-30] MEDS: Calcium Acetate 667 MG CAPSULE PO SCH ×3 (08:09→16:56)
[2021-11-30] MEDS: Sucralfate 1 GM TABLET PO SCH ×4 (08:09→21:23)
[2021-11-30] MEDS: Multivit/Ca/Min/Fe/FA 1 TAB TABLET PO SCH (08:09)
[2021-11-30] MEDS: Insulin LISPRO 300 UNITS/3 ML VIAL SUBQ SCH ×4 (08:22→21:22)
[2021-11-30] MEDS: NIFEdipine XL (24 HR) 60 MG TAB.ER.24 PO SCH (12:00)
[2021-12-01] MEDS: Albumin 25% 25gram/100mL 25 GM/100 ML IV.SOLN IVPB SCH ×4 (00:52→23:00)
[2021-12-01] MEDS: Pantoprazole 40 MG VIAL IVP SCH ×2 (06:06→17:28)
[2021-12-01] MEDS ORDERED: levoFLOXacin 750 MG TABLET PO SCH (08:15)
[2021-12-01] MEDS: Insulin LISPRO 300 UNITS/3 ML VIAL SUBQ SCH ×4 (08:52→22:46)
[2021-12-01] MEDS ORDERED: Ergocalciferol (VIT D2) 50,000 UNIT (1.25MG) CAP PO SCH (09:00)
[2021-12-01 09:16] LABS: Hematocrit 25.1 % (37.5-50.1); Hemoglobin 7.9 g/dL (12.9-16.9); Mean Corpuscular HGB Conc 31.5 g/dL (31.6-35.5); Mean Corpuscular Hemoglobin 27.8 pg (28.0-33.3); Mean Corpuscular Volume 88.4 fL (83.0-100.0); Platelet Count 126 K/mcL (140-400); Red Blood Count 2.84 M/mcL (4.19-5.50); Red Cell Distribution Width 15.3 % (11.5-14.5); White Blood Count 9.4 K/mcL (4.3-11.1)
[2021-12-01] MEDS: Lactobacillus 1 EACH CAP.SPRINK PO SCH ×2 (09:32→22:46)
[2021-12-01] MEDS: NIFEdipine XL (24 HR) 60 MG TAB.ER.24 PO SCH (09:32)
[2021-12-01] MEDS: Sucralfate 1 GM TABLET PO SCH ×4 (09:32→22:46)
[2021-12-01] MEDS: Thiamine (B-1) 100 MG TABLET PO SCH (09:32)
[2021-12-01] MEDS: Calcium Acetate 667 MG CAPSULE PO SCH ×3 (09:32→17:28)
[2021-12-01] MEDS: Multivit/Ca/Min/Fe/FA 1 TAB TABLET PO SCH (09:33)
[2021-12-01] MEDS: Cholecalciferol (D-3) 1,000 UNIT (25MCG) TABLET PO SCH (09:33)
[2021-12-01] MEDS: Finasteride 5 MG TABLET PO SCH (09:33)
[2021-12-01] MEDS: Folic Acid 1 MG TABLET PO SCH (09:33)
[2021-12-01 09:36] LABS: Alanine Aminotransferase 16 Units/L (7-52); Albumin 2.5 g/dL (3.5-5.7); Alkaline Phosphatase 261 Units/L (34-104); Aspartate Amino Transferase 39 Units/L (13-39); BUN/Creatinine Ratio 17 (6-26); Bilirubin,Direct 0.2 mg/dL (0.0-0.2); Bilirubin,Indirect 0.2 mg/dL (0.0-1.0); Bilirubin,Total 0.4 mg/dL (0.3-1.0); Blood Urea Nitrogen 53 mg/dL (6-20); Carbon Dioxide 17 mEq/L (23-29); Chloride 108 mEq/L (98-107); Globulin 2.6 g/dL (2.4-3.5); Glucose 125 mg/dL (70-105); Osmolality,Calculated 300 (280-300); Sodium 137 mEq/L (136-145); Total Protein 5.1 g/dL (6.4-8.9); eGFR For African Americans 25 (> 60); eGFR For Non-African Americans 21 (> 60)
[2021-12-01 09:49] LABS: Thyroid Stimulating Hormone 2.017 mcIU/mL (0.340-5.600)
[2021-12-01 10:41] LABS: Ferritin > 1500 ng/mL (20-250)
[2021-12-01 10:59] LABS: C-Reactive Protein 112 mg/L (Less than 10)
[2021-12-02] MEDS: Pantoprazole 40 MG VIAL IVP SCH (06:39)
[2021-12-02] MEDS: Insulin LISPRO 300 UNITS/3 ML VIAL SUBQ SCH ×4 (09:12→22:59)
[2021-12-02] MEDS: Thiamine (B-1) 100 MG TABLET PO SCH (10:01)
[2021-12-02] MEDS: NIFEdipine XL (24 HR) 60 MG TAB.ER.24 PO SCH (10:01)
[2021-12-02] MEDS: Cholecalciferol (D-3) 1,000 UNIT (25MCG) TABLET PO SCH (10:01)
[2021-12-02] MEDS: Multivit/Ca/Min/Fe/FA 1 TAB TABLET PO SCH (10:01)
[2021-12-02] MEDS: Lactobacillus 1 EACH CAP.SPRINK PO SCH ×2 (10:02→20:41)
[2021-12-02] MEDS: Folic Acid 1 MG TABLET PO SCH (10:02)
[2021-12-02] MEDS: Sucralfate 1 GM TABLET PO SCH ×4 (10:02→20:41)
[2021-12-02] MEDS: Finasteride 5 MG TABLET PO SCH (10:02)
[2021-12-02] MEDS: Calcium Acetate 667 MG CAPSULE PO SCH ×3 (10:05→16:46)
[2021-12-02] MEDS: Albumin 25% 25gram/100mL 25 GM/100 ML IV.SOLN IVPB SCH (10:06)
[2021-12-02 11:41] LABS: Hematocrit 25.7 % (37.5-50.1); Hemoglobin 8.3 g/dL (12.9-16.9)
[2021-12-02 12:02] LABS: Calcium 8.1 mg/dL (8.6-10.3); Magnesium 2.1 mg/dL (1.6-2.6); Phosphorous 3.2 mg/dL (2.7-4.5)
[2021-12-02] MEDS ORDERED: Sodium Bicarbonate 75 MEQ in 0.45 % Sodium Chloride 1,000 ML IVC ONE (13:00)
[2021-12-02] MEDS: Potassium Chloride Elixir 20 MEQ/15 ML UDC PO SCH (13:17)
[2021-12-02] MEDS: Acetaminophen 325 MG TABLET PO PRN ×2 (14:40→22:26)
[2021-12-03 05:04] LABS: Uric Acid 10.9 mg/dL (2.3-7.6)
[2021-12-03] MEDS: Insulin LISPRO 300 UNITS/3 ML VIAL SUBQ SCH ×4 (08:19→19:57)
[2021-12-03 09:31] LABS: Hematocrit 26.5 % (37.5-50.1); Hemoglobin 8.5 g/dL (12.9-16.9)
[2021-12-03] MEDS: Calcium Acetate 667 MG CAPSULE PO SCH ×3 (09:50→18:27)
[2021-12-03] MEDS: Multivit/Ca/Min/Fe/FA 1 TAB TABLET PO SCH (09:50)
[2021-12-03] MEDS: Potassium Chloride Elixir 20 MEQ/15 ML UDC PO SCH (09:50)
[2021-12-03] MEDS: Sucralfate 1 GM TABLET PO SCH ×5 (09:50→20:08)
[2021-12-03] MEDS: Finasteride 5 MG TABLET PO SCH (09:50)
[2021-12-03] MEDS: Lactobacillus 1 EACH CAP.SPRINK PO SCH ×2 (09:50→20:08)
[2021-12-03] MEDS: Folic Acid 1 MG TABLET PO SCH (09:50)
[2021-12-03] MEDS: levoFLOXacin 500 MG TABLET PO SCH (09:50)
[2021-12-03] MEDS: NIFEdipine XL (24 HR) 60 MG TAB.ER.24 PO SCH (09:50)
[2021-12-03 09:51] LABS: Calcium 7.9 mg/dL (8.6-10.3); Potassium 3.3 mEq/L (3.5-5.1)
[2021-12-03] MEDS: Thiamine (B-1) 100 MG TABLET PO SCH (09:51)
[2021-12-03] MEDS: Cholecalciferol (D-3) 1,000 UNIT (25MCG) TABLET PO SCH (09:51)
[2021-12-03] MEDS ORDERED: Sodium Bicarbonate 75 MEQ in 0.45 % Sodium Chloride 1,000 ML IVC SCH (10:45)
[2021-12-04] MEDS ORDERED: *HR* LORazepam 0.5 MG TABLET PO ONE (02:26)
[2021-12-04] MEDS ORDERED: *HR* LORazepam 2 MG/ML VIAL IVP ONE (02:31)
[2021-12-04] MEDS: Sucralfate 1 GM TABLET PO SCH ×4 (07:33→20:13)
[2021-12-04] MEDS: Calcium Acetate 667 MG CAPSULE PO SCH ×3 (07:33→16:45)
[2021-12-04] MEDS: Lactobacillus 1 EACH CAP.SPRINK PO SCH ×2 (07:34→20:13)
[2021-12-04] MEDS: Potassium Chloride Elixir 20 MEQ/15 ML UDC PO SCH (07:34)
[2021-12-04] MEDS: Folic Acid 1 MG TABLET PO SCH (07:34)
[2021-12-04] MEDS: Cholecalciferol (D-3) 1,000 UNIT (25MCG) TABLET PO SCH (07:35)
[2021-12-04] MEDS: Finasteride 5 MG TABLET PO SCH (07:35)
[2021-12-04] MEDS: Thiamine (B-1) 100 MG TABLET PO SCH (07:35)
[2021-12-04] MEDS: Multivit/Ca/Min/Fe/FA 1 TAB TABLET PO SCH (07:35)
[2021-12-04] MEDS: NIFEdipine XL (24 HR) 60 MG TAB.ER.24 PO SCH (07:35)
[2021-12-04 08:12] LABS: Calcium 8.1 mg/dL (8.6-10.3); Phosphorous 2.7 mg/dL (2.7-4.5); Potassium 3.8 mEq/L (3.5-5.1)
[2021-12-04 10:03] LABS: ABG Base Excess -7 mEq/L (-2 to 3); ABG HCO3 18 mEq/L (21-27); ABG Oxygen Saturation 59 % (95-98); ABG PCO2 33 mmHg (35-45); ABG PH 7.34 pH Units (7.32-7.45); ABG PO2 32 mmHg (85-104); ABG TCO2 19 mEq/L (20-26)
[2021-12-04] MEDS: Insulin LISPRO 300 UNITS/3 ML VIAL SUBQ SCH ×4 (10:03→20:13)
[2021-12-04] MEDS ORDERED: Albumin 25% 25gram/100mL 25 GM/100 ML IV.SOLN IVPB SCH (10:45)
[2021-12-04] MEDS ORDERED: Dexamethasone Sodium Phos/PF 10 MG/ML VIAL IVP ONE (11:45)
[2021-12-04 11:47] VITALS: O2SAT 100
[2021-12-04] MEDS ORDERED: Furosemide 40 MG/4 ML VIAL IVP ONE (15:40)
[2021-12-05 02:24] LABS: Calcium 8.4 mg/dL (8.6-10.3); Magnesium 2.1 mg/dL (1.6-2.6); Phosphorous 2.6 mg/dL (2.7-4.5); Potassium 3.4 mEq/L (3.5-5.1)
[2021-12-05] MEDS: Insulin LISPRO 300 UNITS/3 ML VIAL SUBQ SCH ×4 (07:27→19:22)
[2021-12-05] MEDS: Sucralfate 1 GM TABLET PO SCH ×4 (07:29→19:22)
[2021-12-05] MEDS: Calcium Acetate 667 MG CAPSULE PO SCH ×3 (07:29→16:00)
[2021-12-05] MEDS: Lactobacillus 1 EACH CAP.SPRINK PO SCH ×2 (07:30→19:22)
[2021-12-05] MEDS: Folic Acid 1 MG TABLET PO SCH (07:33)
[2021-12-05] MEDS: levoFLOXacin 500 MG TABLET PO SCH (07:33)
[2021-12-05] MEDS: Potassium Chloride Elixir 20 MEQ/15 ML UDC PO SCH (07:33)
[2021-12-05] MEDS: NIFEdipine XL (24 HR) 60 MG TAB.ER.24 PO SCH (07:34)
[2021-12-05] MEDS: Finasteride 5 MG TABLET PO SCH (07:34)
[2021-12-05] MEDS: Multivit/Ca/Min/Fe/FA 1 TAB TABLET PO SCH (07:34)
[2021-12-05] MEDS: Thiamine (B-1) 100 MG TABLET PO SCH (07:35)
[2021-12-05] MEDS: Cholecalciferol (D-3) 1,000 UNIT (25MCG) TABLET PO SCH (07:35)
[2021-12-05 09:24] LABS: Hepatitis B Surface Antibody 36.99 mIU/mL
[2021-12-05 09:35] LABS: Hepatitis B Surface Antigen Nonreactive (Nonreactive)
[2021-12-05 12:13] LABS: ABG Base Excess -10 mEq/L (-2 to 3); ABG HCO3 15 mEq/L (21-27); ABG Oxygen Saturation 100 % (95-98); ABG PCO2 30 mmHg (35-45); ABG PH 7.31 pH Units (7.32-7.45); ABG PO2 271 mmHg (85-104); ABG TCO2 16 mEq/L (20-26)
[2021-12-06] MEDS: Calcium Acetate 667 MG CAPSULE PO SCH (07:16)
[2021-12-06] MEDS: Finasteride 5 MG TABLET PO SCH (07:17)
[2021-12-06] MEDS: Lactobacillus 1 EACH CAP.SPRINK PO SCH (07:17)
[2021-12-06] MEDS: Potassium Chloride Elixir 20 MEQ/15 ML UDC PO SCH (07:17)
[2021-12-06] MEDS: Folic Acid 1 MG TABLET PO SCH (07:17)
[2021-12-06] MEDS: NIFEdipine XL (24 HR) 60 MG TAB.ER.24 PO SCH (07:17)
[2021-12-06] MEDS: Sucralfate 1 GM TABLET PO SCH (07:17)
[2021-12-06] MEDS: Cholecalciferol (D-3) 1,000 UNIT (25MCG) TABLET PO SCH (07:18)
[2021-12-06] MEDS: Multivit/Ca/Min/Fe/FA 1 TAB TABLET PO SCH (07:18)
[2021-12-06] MEDS: Thiamine (B-1) 100 MG TABLET PO SCH (07:18)
[2021-12-06] MEDS: Insulin LISPRO 300 UNITS/3 ML VIAL SUBQ SCH (07:28)
[2021-12-06] MEDS ORDERED: Atropine Sulfate 1% 40 DROP/2 ML BOTTLE SL PRN (10:23)
[2021-12-06] MEDS ORDERED: Haloperidol Lactate 5 MG/ML VIAL IVP PRN (10:23)
[2021-12-06] MEDS: *HR* FentaNYL (PF) 100 MCG/2 ML VIAL IVP PRN ×2 (12:28→23:41)
[2021-12-06] MEDS: *HR* LORazepam 2 MG/ML VIAL IVP PRN (13:24)
[2021-12-07] MEDS: *HR* FentaNYL (PF) 100 MCG/2 ML VIAL IVP PRN ×3 (04:16→21:37)
[2021-12-07 07:21] VITALS: BP 96/57; PULSE 116; TEMP 98.4
[2021-12-07] MEDS: *HR* LORazepam 2 MG/ML VIAL IVP PRN ×2 (09:20→18:00)
[2021-12-08] MEDS: *HR* FentaNYL (PF) 100 MCG/2 ML VIAL IVP PRN ×2 (00:29→05:26)
[2021-12-08] MEDS: *HR* LORazepam 2 MG/ML VIAL IVP PRN (03:10)
== END 2021-12-08 13:49 | disposition hospice, inpatient (51) | DRG 871 ==
LOC: EMEROOARM 14:36 → 3ANU 14:36 → SUATTDRO 22:56 → 3ANU 23:40 → SUATTDRO 11-28 18:37 → 3NENU 12-04 15:49
PROVIDERS: ADMIT Student in an Organized Health Care Education/Training Program; ATTEND Internal Medicine

== ENCOUNTER 2021-12-08 12:54 | Inpatient (IN) ==
[2021-12-08 13:55] VITALS: O2SAT 100
[2021-12-08] MEDS ORDERED: Bisacodyl 10 MG RECTAL SUPPOSITORY RC PRN (14:22)
[2021-12-08] MEDS ORDERED: *HR* FentaNYL (PF) 100 MCG/2 ML VIAL IVP PRN (14:37)
[2021-12-08] MEDS ORDERED: Acetaminophen 650 MG RECTAL SUPP RC PRN (14:38)
[2021-12-08] MEDS ORDERED: Haloperidol Lactate 5 MG/ML VIAL IVP PRN (14:39)
[2021-12-08] MEDS ORDERED: *HR* LORazepam 2 MG/ML VIAL IVP PRN (14:39)
[2021-12-08] MEDS ORDERED: Atropine Sulfate 1% 40 DROP/2 ML BOTTLE SL PRN (14:40)
[2021-12-09 19:30] VITALS: BP 106/70; PULSE 83; TEMP 98.1
== END 2021-12-09 22:40 | disposition expired | DRG 951 ==
LOC: 3NENU 14:45
PROVIDERS: ADMIT Internal Medicine Hospice and Palliative Medicine; ATTEND Internal Medicine Hospice and Palliative Medicine